=== PATIENT | female | born 1995 | race African-American/Black ===

== ENCOUNTER 2016-05-01 11:31 | Emergency (ER) | payer SELFPAY ==
[~2016-05-01] VITALS: Ht 170.2 cm; Wt 110.0 kg
[~2016-05-01 11:31] MED LIST: FOLI-49 PO; PREN-39 PO
[2016-05-01 11:50] VITALS: Ht 170.2 cm; Wt 110.0 kg
== END 2016-05-01 14:00 | disposition left against medical advice (07) ==
LOC: FTE 11:31
DX: Z53.21 Procedure and treatment not carried out due to patient leaving prior to being seen by health care provider (principal)